=== PATIENT | female | born 1985 | race Two or more races ===

== ENCOUNTER 2023-05-29 17:26 | Emergency (ER) | payer OTHER ==
[2023-05-29 18:24] VITALS: BP 137/69; PULSE 96; RESP 18; TEMP 98.2; BMI 11.7
[2023-05-29 20:08] LABS: BASO % 1.3 % (0-2.0); EOS % 2.1 % (0-4.5); HEMATOCRIT 29.2 % (32.4-45.2); HEMOGLOBIN 9.2 GM/dL (10.7-15.3); LYMPH % 22.3 % (8-40); MCH 26.5 pg (25.7-33.7); MCHC 31.5 g/dl (32.0-36.0); MEAN CELL VOLUME 84.2 fl (80-96); MEAN PLT VOLUME 9.3 fl (7.5-11.1); NEUT % 69.3 % (42.8-82.8); PLATELET COUNT 408 10^3/uL (134-434); RBC 3.46 M/mm3 (3.60-5.2); RDW 16.9 % (11.6-15.6); WHITE BLOOD COUNT 5.3 K/mm3 (4.0-10.0)
[2023-05-29 20:15] LABS: INR 1.04 (0.83-1.09); PROTHROMBIN TIME (PATIENT) 12.1 SEC (9.7-13.0)
[2023-05-29 20:17] LABS: ACTIVATED PTT 27.2 SECONDS (25.2-36.5)
[2023-05-29 20:18] LABS: POTASSIUM 4.2 mmol/L (3.5-5.1)
[2023-05-29 20:20] LABS: CALCIUM 8.6 mg/dL (8.5-10.1)
[2023-05-29 20:21] LABS: ALBUMIN 3.1 g/dl (3.4-5.0); BLOOD UREA NITROGEN 8.6 mg/dL (7-18)
[2023-05-29 20:24] LABS: CREATININE 0.7 mg/dL (0.55-1.3)
[2023-05-29 20:26] LABS: BILIRUBIN,TOTAL 0.1 mg/dL (0.2-1); TOT PROT 7.1 g/dl (6.4-8.2)
== END 2023-05-29 21:40 | disposition home or self-care (01) ==
LOC: JER 17:26
DX: N92.0 Excessive and frequent menstruation with regular cycle (principal); R42 Dizziness and giddiness; D64.9 Anemia, unspecified; R06.02 Shortness of breath; R00.2 Palpitations; H11.9 Unspecified disorder of conjunctiva; Z20.822 Contact with and (suspected) exposure to COVID-19
CPT/HCPCS: 0241U-QW; 36415; 80053; 84484; 84703; 85025; 85610; 85730; 86850; 86900; 86901; 93005; 93010; 99284-25

== ENCOUNTER 2023-06-05 11:41 | Emergency (ER) | payer OTHER ==
[2023-06-05 12:04] VITALS: BMI 43.0
[2023-06-05 13:58] LABS: BASO % 0.9 % (0-2.0); EOS % 3.1 % (0-4.5); HEMATOCRIT 26.3 % (32.4-45.2); LYMPH % 15.9 % (8-40); MCH 25.9 pg (25.7-33.7); MCHC 30.5 g/dl (32.0-36.0); MEAN PLT VOLUME 8.4 fl (7.5-11.1); MONO % 6.7 % (3.8-10.2); NEUT % 73.4 % (42.8-82.8); PLATELET COUNT 520 10^3/uL (134-434); RDW 16.9 % (11.6-15.6); WHITE BLOOD COUNT 5.5 K/mm3 (4.0-10.0)
[2023-06-05 14:05] LABS: INR 1.07 (0.83-1.09); PROTHROMBIN TIME (PATIENT) 12.4 SEC (9.7-13.0)
[2023-06-05 14:08] LABS: ACTIVATED PTT 28.4 SECONDS (25.2-36.5)
[2023-06-05 14:18] LABS: CHLORIDE 106 mmol/L (98-107); POTASSIUM 4.2 mmol/L (3.5-5.1); SODIUM 139 mmol/L (136-145)
[2023-06-05 14:19] LABS: ALBUMIN 3.4 g/dl (3.4-5.0); CALCIUM 8.7 mg/dL (8.5-10.1)
[2023-06-05 14:20] LABS: ANION GAP 5 mmol/L (4-13); BLOOD UREA NITROGEN 7.6 mg/dL (7-18); CO2 27 mmol/L (21-32); GLUCOSE,RANDOM 97 mg/dL (74-106)
[2023-06-05 14:22] LABS: SGPT/ALT 18 U/L (13-61)
[2023-06-05 14:24] LABS: BILIRUBIN,TOTAL < 0.1 mg/dL (0.2-1); CREATININE 0.7 mg/dL (0.55-1.3); SGOT/AST 13 U/L (15-37); TOT PROT 7.2 g/dl (6.4-8.2)
[2023-06-05 14:25] LABS: ALK PHOS 72 U/L (45-117)
[2023-06-05 15:55] VITALS: BP 138/68; PULSE 85; RESP 19; TEMP 98
[2023-06-05 21:24] LABS: BASO % 0.9 % (0-2.0); EOS % 2.5 % (0-4.5); HEMATOCRIT 30.5 % (32.4-45.2); HEMOGLOBIN 9.4 GM/dL (10.7-15.3); LYMPH % 27.8 % (8-40); MCH 26.6 pg (25.7-33.7); MCHC 30.8 g/dl (32.0-36.0); MEAN CELL VOLUME 86.2 fl (80-96); MEAN PLT VOLUME 8.7 fl (7.5-11.1); MONO % 6.1 % (3.8-10.2); NEUT % 62.7 % (42.8-82.8); PLATELET COUNT 582 10^3/uL (134-434); RBC 3.54 M/mm3 (3.60-5.2); RDW 15.9 % (11.6-15.6)
== END 2023-06-05 22:10 | disposition home or self-care (01) ==
LOC: JER 11:41
DX: N93.9 Abnormal uterine and vaginal bleeding, unspecified (principal); R55 Syncope and collapse; D64.9 Anemia, unspecified; Z20.822 Contact with and (suspected) exposure to COVID-19
CPT/HCPCS: 0241U-QW; 36415; 36430; 71046-TC-FY; 80053; 84484; 84703; 85025; 85610; 85730; 86850; 86900; 86901; 86922; 93005; 93010; 99285-25; P9038; P9058

== ENCOUNTER 2023-06-17 04:26 | Inpatient (IN) | payer OTHER ==
[2023-06-13 14:23] VITALS: BMI 43.0
[~2023-06-17 04:26] MED LIST: CEFAZOLIN 2 GM in DEXTROSE 5%-WATER - 100 ML IVPB ONE; PHENAZOPYRIDINE HCL 100 MG TABLET (FP) PO ONE; TRANEXAMIC ACID 1000 MG/10 ML VIAL IVPUSH ONE
[2023-06-17] MEDS ORDERED: PHENAZOPYRIDINE HCL 100 MG TABLET (FP) ONE (11:23)
[2023-06-17] MEDS ORDERED: ceFAZolin SODIUM 1 GM VIAL ONE (11:23)
[2023-06-17] MEDS ORDERED: SUCCINYLCHOLINE CHLORIDE 200 MG/10 ML SYRINGE ONE (11:39)
[2023-06-17] MEDS ORDERED: LIDOCAINE HCL/PF 2% SDV 5ML VIAL ONE (11:39)
[2023-06-17] MEDS ORDERED: PROPOFOL 20 ML ONE (11:39)
[2023-06-17] MEDS ORDERED: PHENAZOPYRIDINE HCL 100 MG TABLET (FP) PO ONE ×2 (11:40→16:12)
[2023-06-17] MEDS ORDERED: ROCURONIUM BROMIDE 50 MG/5 ML SYRINGE ONE (11:40)
[2023-06-17] MEDS ORDERED: MIDAZOLAM HCL 2 MG/2 ML SINGLE DOSE VIAL ONE (11:40)
[2023-06-17] MEDS ORDERED: ceFAZolin SODIUM 1 GM VIAL IVPB ONE (12:39)
[2023-06-17] MEDS ORDERED: DEXAMETHASONE SOD PHOSPHATE 4 MG/1 ML VIAL ONE (13:01)
[2023-06-17] MEDS ORDERED: TRANEXAMIC ACID 1000 MG/10 ML VIAL ONE (13:25)
[2023-06-17] MEDS ORDERED: ONDANSETRON 4 MG/2 ML VIAL IVPUSH PRN ×3 (14:03→16:12)
[2023-06-17] MEDS ORDERED: PROMETHAZINE HCL 25 MG/1 ML VIAL IVPB PRN ×2 (14:03→16:12)
[2023-06-17] MEDS ORDERED: ACETAMINOPHEN 1000 MG/100 ML BAG IVPB ONE ×2 (14:04→16:12)
[2023-06-17] MEDS ORDERED: LACTATED RINGERS SOLUTION 1,000 ML IV SCH ×2 (14:15→16:12)
[2023-06-17] MEDS ORDERED: ONDANSETRON 4 MG/2 ML VIAL ONE (14:42)
[2023-06-17] MEDS ORDERED: KETOROLAC TROMETHAMINE 30 MG/1 ML VIAL ONE (14:42)
[2023-06-17] MEDS ORDERED: CEFAZOLIN SODIUM 2 GM in DEXTROSE 5%-WATER 100 ML IVPB ONE (16:00)
[2023-06-17] MEDS ORDERED: TRANEXAMIC ACID 1000 MG/10 ML VIAL IVPUSH ONE (16:12)
[2023-06-17] MEDS ORDERED: DOCUSATE SODIUM 100 MG CAPSULE (FP) PO PRN (16:12)
[2023-06-17] MEDS ORDERED: BISACODYL 5 MG TABLET.DR (FP) PO PRN (16:12)
[2023-06-17] MEDS ORDERED: oxyCODONE HCL 5 MG TABLET PO PRN ×2 (16:12)
[2023-06-17] MEDS ORDERED: ACETAMINOPHEN INJECTION 100 ML IVPB ONE (17:04)
[2023-06-17] MEDS ORDERED: CEFAZOLIN 1 GM in DEXTROSE 5%-WATER - 50 ML IVPB SCH (18:00)
[2023-06-17] MEDS: LACTATED RINGERS SOLUTION 1,000 ML/1,000 ML INFUS.BAG IV SCH ×2 (19:09→23:55)
[2023-06-17 19:55] LABS: HEMATOCRIT 31.9 % (32.4-45.2); HEMOGLOBIN 9.8 GM/dL (10.7-15.3); MCH 26.5 pg (25.7-33.7); MCHC 30.8 g/dl (32.0-36.0); MEAN CELL VOLUME 85.8 fl (80-96); MEAN PLT VOLUME 9.1 fl (7.5-11.1); PLATELET COUNT 387 10^3/uL (134-434); RBC 3.71 M/mm3 (3.60-5.2); RDW 15.8 % (11.6-15.6); WHITE BLOOD COUNT 14.2 K/mm3 (4.0-10.0)
[2023-06-17 20:15] LABS: POTASSIUM 4.1 mmol/L (3.5-5.1)
[2023-06-17 20:16] LABS: CALCIUM 8.4 mg/dL (8.5-10.1)
[2023-06-17 20:17] LABS: BLOOD UREA NITROGEN 11.4 mg/dL (7-18)
[2023-06-17 20:20] LABS: CREATININE 0.8 mg/dL (0.55-1.3)
[2023-06-17] MEDS: CEFAZOLIN 1 GM in DEXTROSE 5%-WATER - 50 ML IVPB SCH (21:15)
[2023-06-17] MEDS: ACETAMINOPHEN 325 MG TABLET (FP) PO SCH (23:49)
[2023-06-18] MEDS: ACETAMINOPHEN 325 MG TABLET (FP) PO SCH ×4 (05:04→23:48)
[2023-06-18] MEDS: CEFAZOLIN 1 GM in DEXTROSE 5%-WATER - 50 ML IVPB SCH (05:04)
[2023-06-18] MEDS: IBUPROFEN 800 MG/8 ML IJ IVPB SCH ×3 (05:41→21:12)
[2023-06-18 07:45] LABS: HEMATOCRIT 25.4 % (32.4-45.2); HEMOGLOBIN 8.1 GM/dL (10.7-15.3); MCH 27.1 pg (25.7-33.7); MCHC 31.8 g/dl (32.0-36.0); MEAN CELL VOLUME 85.1 fl (80-96); MEAN PLT VOLUME 8.7 fl (7.5-11.1); PLATELET COUNT 318 10^3/uL (134-434); RBC 2.99 M/mm3 (3.60-5.2); RDW 15.4 % (11.6-15.6); WHITE BLOOD COUNT 8.4 K/mm3 (4.0-10.0)
[2023-06-18 08:04] LABS: POTASSIUM 3.8 mmol/L (3.5-5.1)
[2023-06-18 08:05] LABS: BLOOD UREA NITROGEN 10.8 mg/dL (7-18); CALCIUM 7.9 mg/dL (8.5-10.1)
[2023-06-18 08:09] LABS: CREATININE 0.7 mg/dL (0.55-1.3)
[2023-06-18] MEDS: ENOXAPARIN NA (PORCINE) 40 MG/0.4 ML DISP.SYRIN SQ SCH (09:20)
[2023-06-18] MEDS: FERROUS SO4 325 MG TABLET (FP) PO SCH ×2 (13:01→17:43)
[2023-06-18] MEDS ORDERED: SODIUM CHLORIDE 0.9% 500 ML INFUS.BAG IV ONE (14:20)
[2023-06-18 15:32] LABS: MCHC 31.9 g/dl (32.0-36.0); MEAN CELL VOLUME 84.7 fl (80-96); PLATELET COUNT 304 10^3/uL (134-434); RBC 2.96 M/mm3 (3.60-5.2); RDW 15.9 % (11.6-15.6); WHITE BLOOD COUNT 8.1 K/mm3 (4.0-10.0)
[2023-06-18 15:43] LABS: INR 1.24 (0.83-1.09); PROTHROMBIN TIME (PATIENT) 14.3 SEC (9.7-13.0)
[2023-06-18 15:46] LABS: ACTIVATED PTT 30.2 SECONDS (25.2-36.5)
[2023-06-18 15:50] LABS: POTASSIUM 3.3 mmol/L (3.5-5.1)
[2023-06-18 15:51] LABS: CALCIUM 7.8 mg/dL (8.5-10.1)
[2023-06-18 15:52] LABS: BLOOD UREA NITROGEN 11.6 mg/dL (7-18)
[2023-06-18 15:55] LABS: CREATININE 0.8 mg/dL (0.55-1.3)
[2023-06-18] MEDS: LACTATED RINGERS SOLUTION 1,000 ML/1,000 ML INFUS.BAG IV SCH (17:44)
[2023-06-18] MEDS ORDERED: ZOLPIDEM TARTRATE 5 MG TABLET PO PRN ×2 (21:21→22:00)
[2023-06-19] MEDS: ACETAMINOPHEN 325 MG TABLET (FP) PO SCH ×4 (04:44→23:55)
[2023-06-19] MEDS: IBUPROFEN 800 MG/8 ML IJ IVPB SCH ×2 (06:44→21:21)
[2023-06-19] MEDS: FERROUS SO4 325 MG TABLET (FP) PO SCH ×3 (09:39→17:18)
[2023-06-19 09:49] LABS: BASO % 0.3 % (0-2.0); EOS % 1.6 % (0-4.5); HEMATOCRIT 23.3 % (32.4-45.2); HEMOGLOBIN 7.5 GM/dL (10.7-15.3); LYMPH % 12.1 % (8-40); MCHC 32.2 g/dl (32.0-36.0); MEAN CELL VOLUME 83.8 fl (80-96); MONO % 7.7 % (3.8-10.2); NEUT % 78.3 % (42.8-82.8); PLATELET COUNT 288 10^3/uL (134-434); RBC 2.78 M/mm3 (3.60-5.2); RDW 15.9 % (11.6-15.6); WHITE BLOOD COUNT 7.6 K/mm3 (4.0-10.0)
[2023-06-19] MEDS: ENOXAPARIN NA (PORCINE) 40 MG/0.4 ML DISP.SYRIN SQ SCH (10:11)
[2023-06-19 14:05] VITALS: RESP 18
[2023-06-19] MEDS: SIMETHICONE 80 MG TAB.CHEW (FP) PO PRN (21:13)
[2023-06-20] MEDS: ACETAMINOPHEN 325 MG TABLET (FP) PO SCH ×2 (05:45→11:07)
[2023-06-20] MEDS: IBUPROFEN 800 MG/8 ML IJ IVPB SCH ×2 (06:16→06:26)
[2023-06-20] MEDS: IBUPROFEN 600 MG TABLET (FP) PO PRN ×2 (06:20→12:28)
[2023-06-20] MEDS: SIMETHICONE 80 MG TAB.CHEW (FP) PO PRN (06:31)
[2023-06-20] MEDS: FERROUS SO4 325 MG TABLET (FP) PO SCH ×2 (08:32→12:28)
[2023-06-20] MEDS: ENOXAPARIN NA (PORCINE) 40 MG/0.4 ML DISP.SYRIN SQ SCH (10:13)
[2023-06-20 12:18] VITALS: BP 112/72; PULSE 76; TEMP 97.9
== END 2023-06-20 12:30 | disposition home or self-care (01) | DRG 519 ==
LOC: J2C 04:26 → EDSTATUS 13:15 → J3W 18:11
PROVIDERS: ADMIT Obstetrics & Gynecology; ATTEND Obstetrics & Gynecology
PROC: 30233N1 Transfusion of Nonautologous Red Blood Cells into Peripheral Vein, Percutaneous Approach (ICD-10-PCS; 2023-06-17)
PROC: 0UB90ZZ Excision of Uterus, Open Approach (ICD-10-PCS; principal; 2023-06-17 13:15)
DX: D25.9 Leiomyoma of uterus, unspecified (principal); D25.2 Subserosal leiomyoma of uterus; D62 Acute posthemorrhagic anemia
CPT/HCPCS: 36415; 36430; 80048; 80053; 81003; 81025; 82962; 85025; 85027; 85610; 85730; 86850; 86900; 86901; 86922; 88305-TC; 93005; 93010; 94010; 94760; J0131; P9038; P9058